=== PATIENT | female | born 1940 | race Caucasian/White ===

== ENCOUNTER 2016-10-06 09:54 | Observation (INO) | payer MEDICARE, OTHER ==
[~2016-10-06] VITALS: Ht 152.4 cm; Wt 54.9 kg
[2016-10-06] VITALS (7 sets, daily range): BP systolic 92–207; BP diastolic 55–85
[~2016-10-06 09:54] MED LIST: ASCO-277 PO; ASCO2000; ASPI-84 PO; ATEN-156 PO; CALC1TAB97 PO; CETI10TA17 PO; CHOL500044 PO; CINN500C7 PO; CINNAMON; CYCL10TA9 PO; DCS100C; DICL150D5 TP; DULO60CA6 PO; ESTR0.5T3 VG; ESTR42.52 VG; EVENING PRIMROSE; FEXO-142 PO; GARL10002 PO; GARL400T13; GARLIC 1000 MG PO; IBP800T; LOSA1TAB3; LOSA1TAB69 PO; LOSA25TA5 PO; MMT17NA NSEACH; MULT-608 PO; NFAMINITAB PO; OMEG-109 PO; OMEG1CAP58 PO; OMEP20CA6 PO; OMNARIS NASAL; OXYC1TAB17 PO; PANT20TA2 PO; PANT40TA3 PO; PIOG1TAB PO; ROPI0.5T2 PO; ROPI1TAB2 PO; SIMV10TA3; SIMV20TA3 PO; SITA1TAB2 PO; SUCR1TAB23 PO; TERI202.4P SQ; TRAZ50TA67; TRM50T; TRZ100T PO
[2016-10-06 11:03] LABS: BASOPHILS % (AUTO) 1 % (0-10); EOSINOPHILS # (AUTO) 0.1 10^3/uL (0.0-0.3); EOSINOPHILS % (AUTO) 2 % (0-10); LYMPHOCYTES # (AUTO) 1.8 X 10^3 (1.0-4.0); LYMPHOCYTES % (AUTO) 33 % (12-44); MEAN CORPUSCULAR HEMOGLOBIN 31 PG (25-34); MEAN CORPUSCULAR HGB CONC 32 G/DL (32-36); MEAN CORPUSCULAR VOLUME 98 FL (80-99); MEAN PLATELET VOLUME 9.5 FL (7.4-10.4); MONOCYTES # (AUTO) 0.3 X 10^3 (0.0-1.0); MONOCYTES % (AUTO) 6 % (0-12); NEUTROPHILS # (AUTO) 3.2 X 10^3 (1.8-7.8); NEUTROPHILS % (AUTO) 59 % (42-75); PLATELET COUNT 262 10^3/uL (130-400); RED BLOOD COUNT 3.81 10^6/uL (4.35-5.85); WHITE BLOOD COUNT 5.4 10^3/uL (4.3-11.0)
[2016-10-06] MEDS ORDERED: DICL100G31 TP (11:08)
[2016-10-06] MEDS ORDERED: SIMV20TA3 PO (11:08)
[2016-10-06] MEDS ORDERED: OXYC-465 PO (11:08)
[2016-10-06] MEDS ORDERED: TRAZ100T92 PO (11:08)
[2016-10-06] MEDS ORDERED: DULO60CA58 PO (11:08)
[2016-10-06] MEDS ORDERED: ROPI1TAB2 PO (11:08)
[2016-10-06 11:24] LABS: ALANINE AMINOTRANSFERASE 19 U/L (0-55); ALBUMIN 3.7 GM/DL (3.2-4.5); ANION GAP 8 MMOL/L (5-14); ASPARTATE AMINO TRANSFERASE 18 U/L (5-34); BILIRUBIN,TOTAL 0.5 MG/DL (0.1-1.0); BLOOD UREA NITROGEN 12 MG/DL (7-18); BUN/CREATININE RATIO 18; CALCIUM 9.2 MG/DL (8.5-10.1); CARBON DIOXIDE 26 MMOL/L (21-32); CHLORIDE 107 MMOL/L (98-107); CREATININE SERUM 0.65 MG/DL (0.60-1.30); GFR ESTIMATED > 60; GLUCOSE 104 MG/DL (70-105); POTASSIUM 3.1 MMOL/L (3.6-5.0); SODIUM 141 MMOL/L (135-145); TOTAL PROTEIN 6.4 GM/DL (6.4-8.2)
[2016-10-06 11:44] LABS: THYROID STIMULATING HORMONE 1.31 UIU/ML (0.35-4.94)
[2016-10-06 13:10] LABS: BILIRUBIN,URINE NEGATIVE (NEGATIVE); KETONES,URINE 1+ (NEGATIVE); LEUKOCYTE ESTERASE ,URINE 1+ (NEGATIVE); NITRITE,URINE NEGATIVE (NEGATIVE); PH,URINE 7 (5-9); PROTEIN,URINE NEGATIVE (NEGATIVE); UROBILINOGEN,URINE NORMAL (NORMAL)
[2016-10-06 13:18] LABS: SQUAMOUS EPITHELIAL CELL,UR 0-2 /HPF; WBC,URINE 0-2 /HPF
--- NOTE | 2016-10-06 13:41 | Diagnostic Imaging Report ---
PROCEDURE: CT head without contrast. TECHNIQUE: Multiple contiguous axial images were obtained through the brain without the use of intravenous contrast. INDICATION: Confusion. FINDINGS: There is no intracranial hemorrhage, edema or mass effect. The brain parenchyma demonstrates periventricular and deep white matter hypodensities compatible with chronic microvascular ischemic changes. No hydrocephalus. No extra-axial fluid collection is seen. The calvarium, the paranasal sinuses and orbits appear grossly unremarkable. IMPRESSION: No acute process. Dictated by: Dictated on workstation # [id number]
--- NOTE | 2016-10-06 15:32 | Diagnostic Imaging Report ---
PROCEDURE: MR imaging of the brain without contrast. TECHNIQUE: Multiplanar, multisequence MR imaging of the brain was performed without contrast. INDICATION: Memory impairment and confusion. FINDINGS: There is no diffusion restriction to suggest an acute infarct or other diffusion abnormality. There is periventricular and deep white matter T2 hyperintense signal seen. This is in a pattern suggestive of chronic progressive ischemic changes. There is slight prominence of the CSF spaces, expected at the patient's age with no significant the ventricular dilatation or hydrocephalus. The central vascular flow-voids appear grossly unremarkable. The internal auditory canals and inner ear structures appear unremarkable. The pituitary gland is not enlarged. No hypothalamic or pineal region mass. IMPRESSION: White matter findings are suggestive of chronic microvascular ischemic changes. No acute infarct. Dictated by: Dictated on workstation # [id number]
[2016-10-06] MEDS ORDERED: KCL 20 MEQ TAB (K-DUR) PO NR (16:15)
[2016-10-06] MEDS ORDERED: cloNIDine 0.1 MG (CATAPRES) TAB PO NR ×2 (16:15→18:15)
[2016-10-06] MEDS ORDERED: ALPRAZolam 0.25 MG (XANAX) TAB PO NR (18:15)
[2016-10-06] MEDS ORDERED: amLODIPine 5 MG (NORVASC) TAB PO NR (18:15)
--- NOTE | 2016-10-06 18:19 | History & Physicial ---
History of Present Illness History of Present Illness Reason for visit/HPI PT IS A 75 Y/O FEMALE WHO PRESENTED TO THE OFFICE TODAY FOR A MEDICARE PHYSICAL WHEN SHE WAS NOTICED TO HAVE SOME HESITANCY IN HER SPEECH. SHE NOTICED THAT SHE HAD QUITE A HEADACHE THIS MORNING AND ADMITTED THAT SHE DROVE HERSELF TO THE OFFICE. SHE REPORTED THAT SHE WAS HAVING HEADACHES OFF AND ON FOR A FEW DAYS. Date of Admission Oct 06, 2016 at 10:21 Date Seen by Provider: Oct 06, 2016 Time Seen by Provider: 10:10 Attending Physician Tracy Nuñez MD Admitting Physician Tracy Nuñez MD Consult Allergies and Home Medications Allergies Coded Allergies: Iodinated Casein (Unverified Allergy, Mild, 06/12/09) Home Medications Aspirin 81 Mg Tablet.dr, 81 MG PO HS, (Reported) Cholecalciferol (Vitamin D3) 5,000 Unit Tablet, 5,000 UNIT PO DAILY, (Reported) Diclofenac Sodium 100 Gm Gel..gram., 1 APPLIC TP QID PRN for PAIN, (Reported) Duloxetine HCl 60 Mg Capsule.dr, 60 MG PO DAILY, (Reported) Garlic 1,000 Mg Capsule, 1,000 MG PO BID, (Reported) Losartan/Hydrochlorothiazide 1 Each Tablet, 1 TAB PO DAILY, (Reported) Multivitamins 1 Tab Tablet, 1 TAB PO DAILY, (Reported) Oxycodone HCl/Acetaminophen 1 Each Tablet, 2 TAB PO TID PRN for PAIN-MODERATE, ( Reported) Pantoprazole Sodium 40 Mg Tablet.dr, 40 MG PO DAILY, (Reported) Ropinirole HCl 0.5 Mg Tablet, 0.5 MG PO HS, (Reported) TAKES IN ADDITION WITH ROPINIROLE 1MG @ BEDTIME Ropinirole HCl 1 Mg Tablet, 1 MG PO HS, (Reported) TAKES IN ADDITION WITH ROPINIROLE 0.5MG @ BEDTIME Simvastatin 20 Mg Tablet, 20 MG PO HS, (Reported) Sitagliptin Phos/Metformin HCl 1 Tab Tablet, 1 TAB PO BID, (Reported) Trazodone HCl 100 Mg Tablet, 100 MG PO HS, (Reported) Past Yjfohfe-Abnehi-Zbljmp Hx Patient Social History Marrital Status: Living Status: LIVES AT HOME WITH HER Employed/Student: retired Alcohol Use: Denies Use Recreational Drug Use: No Smoking Status: Former Smoker Type Used: Cigarettes 2nd Hand Smoke Exposure: No Physical Abuse Screen: No Sexual Abuse: No Recent Foreign Travel: No Contact w/other who traveled: No Recent Hopitalizations: Yes (SURGERIES, VAG X 3) Recent Infectious Disease Expo: No Immunizations Up To Date Tetanus Booster (TDap): More than 5yrs Date of Pneumonia Vaccine: Nov 21, 2015 Date of Influenza Vaccine: Jan 15, 2015 Seasonal Allergies Seasonal Allergies: No Surgeries HX Surgeries: Yes (left breast bx, cataracts, A&P repair, kyphoplasty) Respiratory Hx Respiratory Disorders: Yes (SLEEP APNEA wears cpap at night) Cardiovascular Hx Cardiovascular Disorders: Yes Cardiac Disorders: Hypertension Neurological Hx Neurological Disorders: No Reproductive System : No Hx Reproductive Disorders: No Sexually Transmitted Disease: No HIV/AIDS: No Female Reproductive Disorders: Denies Genitourinary Hx Genitourinary Disorders: No Gastrointestinal Hx Gastrointestinal Disorders: Yes (CHRONIC CONSTIPATION) Musculoskeletal Hx Musculoskeletal Disorders: Yes Musculoskeletal Disorders: Arthritis, Chronic Back Pain Endocrine Hx Endocrine Disorders: Yes Endocrine Disorders: Diabetes, Non-Insulin dep HEENT HX ENT Disorders: No Loss of Vision: Denies Hearing Impairment: Denies Cancer Hx Cancer: No Psychosocial Hx Psychiatric Problems: Yes Blood Transfusions Hx Blood Disorders: No Reviewed Nursing Assessment Reviewed/Agree w Nursing PMH: Yes Family Medical History Significant Family History: Hypertension Family Hx: Patient reports no known family medical history. Constitutional: No chills, No fever, malaise, weakness EENTM: No hoarseness, No mouth pain, No throat pain Respiratory: No cough, No dyspnea on exertion, No short of breath Cardiovascular: No chest pain, No palpitations Gastrointestinal: No abdominal pain, No constipation, No diarrhea, No nausea, No vomiting Genitourinary: no symptoms reported : No Musculoskeletal: muscle weakness Skin: no symptoms reported Psychiatric/Neurological: Weakness, Other (CONFUSION, SLOW SPEECH) All Other Systems Reviewed Negative Unless Noted: Yes Physical Exam Vital Signs Vital Sign - Last 12Hours 10/06/16 12:00 Temp 98.6 Pulse 56 Resp 20 B/P (MAP) 190/78 Pulse Ox 99 O2 Delivery Room Air Capillary Refill : General Appearance: No Apparent Distress, WD/WN HEENT: PERRL/EOMI, Pharynx Normal Neck: Full Range of Motion, Supple Respiratory: Chest Non Tender, Lungs Clear, Normal Breath Sounds, No Accessory Muscle Use Cardiovascular: Regular Rate, Rhythm, No Edema, No Gallop Gastrointestinal: Normal Bowel Sounds, No Organomegaly, Non Tender, Soft Rectal: Deferred Back: Other (KYPHOSIS) Neurologic/Psychiatric: Alert, Oriented x3, Other (SLOW SPEECH) Skin: Warm/Dry Lymphatic: No Adenopathy Assessment/Plan Assessment and Plan HYPERTENSION WEAKNESS SLOW SPEECH HYPERLIPIDEMIA DIABETES MELLITUS HYPERTENSION - UNCONTROLLED - CHECK BLOOD PRESSURE. RESTARTED LOSARTAN. - BLOOD PRESSURE SPIKES LATE IN THE DAY - CLONIDINE ORDERED FOR PRN USE. WEAKNESS AND SLOW SPEECH - RECOMMENDED PT TO HAVE CT SCAN AT HOSPITAL, CHECK LABS - CT SCAN NEGATIVE. HYPERLIPIDEMIA - CONTINUE HOME MEDICATIONS. HYPONATREMIA ON OFFICE LAB - THIS WAS NORMAL ON REPEAT EVAL AT THE HOSPITAL. DIABETES MELLITUS - HOLD HOME MEDICATIONS AT THIS TIME. Problems: Admission Diagnosis HYPERTENSION WEAKNESS SLOW SPEECH HYPERLIPIDEMIA DIABETES MELLITUS Clinical Quality Measures DVT/VTE Risk/Contraindication: Risk Factor Score Per Nursin RFS Level Per Nursing on Admit: 2=Moderate TRACY NUÑEZ MD Oct 06, 2016 18:19
[2016-10-06] MEDS ORDERED: DICLOFENAC 1% GEL 100 GM (VOLTAREN) TUBE TP PRN (18:30)
[2016-10-06] MEDS ORDERED: LOSARTAN 50 MG (COZAAR) TAB PO NR (18:30)
[2016-10-06] MEDS ORDERED: oxyCODONE/APAP 10/325MG (PERCOCET 10) TABLET PO PRN (18:30)
[2016-10-06] MEDS ORDERED: rOPINIRole 0.25 MG (REQUIP) TAB PO SCH (21:00)
[2016-10-06] MEDS ORDERED: SIMvastatin 20 MG (ZOCOR) TAB PO SCH (21:00)
[2016-10-06] MEDS ORDERED: rOPINIRole 1 MG (REQUIP) TABLET PO SCH ×2 (21:00)
[2016-10-06] MEDS ORDERED: traZODone 100 MG (DESYREL) TAB PO SCH (21:00)
[2016-10-06] MEDS ORDERED: ASPIRIN E.C. 81 MG (ECOTRIN) TAB PO SCH (21:00)
[2016-10-06] MEDS: cloNIDine 0.1 MG (CATAPRES) TAB PO SCH (22:54)
[2016-10-06] MEDS ORDERED: NS IV 500 ML 500 ML IV ONE (23:00)
[2016-10-06] MEDS ORDERED: NS (IVPB) 250 ML ONE (23:00)
[2016-10-07 00:52] VITALS: BP 102/53
[2016-10-07 04:10] VITALS: BP 149/69
[2016-10-07 06:03] LABS: MEAN PLATELET VOLUME 9.7 FL (7.4-10.4); RED BLOOD COUNT 3.87 10^6/uL (4.35-5.85); RED CELL DISTRIBUTION WIDTH 15.1 % (10.0-14.5); WHITE BLOOD COUNT 4.6 10^3/uL (4.3-11.0)
[2016-10-07 06:22] LABS: ALANINE AMINOTRANSFERASE 23 U/L (0-55); ALBUMIN 3.6 GM/DL (3.2-4.5); ANION GAP 9 MMOL/L (5-14); ASPARTATE AMINO TRANSFERASE 19 U/L (5-34); BILIRUBIN,TOTAL 0.3 MG/DL (0.1-1.0); BLOOD UREA NITROGEN 10 MG/DL (7-18); BUN/CREATININE RATIO 16; CARBON DIOXIDE 24 MMOL/L (21-32); CHLORIDE 111 MMOL/L (98-107); CREATININE SERUM 0.62 MG/DL (0.60-1.30); GFR ESTIMATED > 60; GLUCOSE 102 MG/DL (70-105); POTASSIUM 3.6 MMOL/L (3.6-5.0); SODIUM 144 MMOL/L (135-145); TOTAL PROTEIN 6.1 GM/DL (6.4-8.2)
[2016-10-07] MEDS ORDERED: PANTOPRAZOLE 40 MG (PROTONIX) TAB PO SCH (07:00)
[2016-10-07 08:00] VITALS: BP 104/55
[2016-10-07 08:24] VITALS: BP 164/55
[2016-10-07] MEDS ORDERED: LOSARTAN 50 MG (COZAAR) TAB PO SCH (09:00)
[2016-10-07] MEDS ORDERED: VITAMIN D3 5,000 UNITS (CHOLECALCIFEROL ) CAPSULE PO SCH (09:00)
[2016-10-07] MEDS ORDERED: DULoxetine 30 MG (CYMBALTA) CAP PO SCH (09:00)
[2016-10-07] MEDS: cloNIDine 0.1 MG (CATAPRES) TAB PO SCH (09:10)
[2016-10-07] MEDS ORDERED: CLON0.1T PO (09:38)
--- NOTE | 2016-10-07 09:39 | Discharge Inst-Complex ---
PDI Med Rec & Follow Up Appt. New Medications: Clonidine HCl (Clonidine HCl) 0.1 Mg Tablet 0.1 MG PO BID PRN for BLOOD PRESSURE for 30 Days, #60 TAB 1 Refill if systolic blood pressure is > or =to 180 take med, repeat BP @noc if above 180 take 0.1clonidine Continued Medications: Aspirin (Rena) 81 Mg Tablet.dr 81 MG PO HS Cholecalciferol (Vitamin D3) (Vitamin D3) 5,000 Unit Tablet 5000 UNIT PO DAILY, TAB Diclofenac Sodium (Diclofenac Sodium) 100 Gm Gel..gram. 1 APPLIC TP QID PRN for PAIN Duloxetine HCl (Duloxetine HCl) 60 Mg Capsule.dr 60 MG PO DAILY Garlic (Garlic) 1,000 Mg Capsule 1000 MG PO BID, CAP Losartan/Hydrochlorothiazide (Losartan-Hctz 50-12.5 mg Tab) 1 Each Tablet 1 TAB PO DAILY, TAB Multivitamins (Multiple Vitamin) 1 Tab Tablet 1 TAB PO DAILY Oxycodone HCl/Acetaminophen (Oxycodone-Acetaminophen 10-325) 1 Each Tablet 2 TAB PO TID PRN for PAIN-MODERATE Pantoprazole Sodium (Pantoprazole Sodium) 40 Mg Tablet.dr 40 MG PO DAILY, TAB Ropinirole HCl (Ropinirole HCl) 0.5 Mg Tablet 0.5 MG PO HS, TAB TAKES IN ADDITION WITH ROPINIROLE 1MG @ BEDTIME Ropinirole HCl (Ropinirole HCl) 1 Mg Tablet 1 MG PO HS TAKES IN ADDITION WITH ROPINIROLE 0.5MG @ BEDTIME Simvastatin (Simvastatin) 20 Mg Tablet 20 MG PO HS Sitagliptin Phos/Metformin HCl (Janumet 50-500 mg Tablet) 1 Tab Tablet 1 TAB PO BID, TAB Trazodone HCl (Trazodone HCl) 100 Mg Tablet 100 MG PO HS Prescription: Transmitted to Pharmacy Activity, Diet and PDI Resume Normal Activity: Yes Driving Instructions: No Driving for 1 Week TRACY GIBBONS MD Oct 07, 2016 09:39
[2016-10-07 10:10] VITALS: BP 104/55
== END 2016-10-07 09:38 | disposition home or self-care (01) ==
LOC: 4TH 10:21 → UNDOADMOB 10:21 → 4TH 10:31 → ENPENDDIS 10-07 09:45 → UNDODISOB 10-07 10:10
PROVIDERS: ADMIT Family Medicine; ATTEND Family Medicine
DX: I16.0 Hypertensive urgency (principal); E78.5 Hyperlipidemia, unspecified; E87.1 Hypo-osmolality and hyponatremia; R41.0 Disorientation, unspecified; R47.9 Unspecified speech disturbances; Z79.82 Long term (current) use of aspirin; Z79.899 Other long term (current) drug therapy; Z87.891 Personal history of nicotine dependence
CPT/HCPCS: 36415; 70450; 70551; 80053; 81000; 84443; 85025; 85027; 99211; G0378

== ENCOUNTER → 2017-04-22 | Outpatient (CLI) | payer MEDICARE, OTHER ==
[~2017-04-22] MED LIST changes: +CLON0.1T PO; +DICL100G31 TP; +DULO60CA58 PO; +LOSA1TAB20 PO; -LOSA1TAB69 PO; +OXYC-465 PO; +TRAZ100T92 PO
--- NOTE | 2017-04-22 11:19 | Diagnostic Imaging Report ---
INDICATION: Fall with back pain. Time of exam: 10:20 AM Comparison is made with prior thoracic spine radiographs from 11/14/2014. Curvature and alignment appear stable. Kyphoplasty changes at T9 and T12 are again noted. There is a small amount of cement within the T10 vertebral body as well. No further loss of vertebral body stature is identified. No new compression fractures identified. Paraspinous line is intact. Generalized thoracic spondylosis with variable disc space narrowing and marginal spurring is seen. IMPRESSION: Stable thoracic spine radiographs when compared with exam from 11/14/2014. No acute features detected. Dictated by: Dictated on workstation # [id number]
--- NOTE | 2017-04-22 11:51 | Diagnostic Imaging Report ---
INDICATION: Fall with neck pain. TIME OF EXAM: 10:18 AM FINDINGS: Curvature and alignment of the cervical spine are normal. There is multilevel facet arthropathy. The prevertebral tissues are normal. No fractures are seen. The odontoid appears intact. IMPRESSION: Cervical spondylosis. No acute bony abnormality is detected. Dictated by: Dictated on workstation # [id number]
--- NOTE | 2017-04-22 12:26 | Diagnostic Imaging Report ---
INDICATION: Fall with increasing right shoulder pain. TIME OF EXAM: 10:14 a.m. FINDINGS: Three views of the right shoulder were obtained. Glenohumeral and acromioclavicular alignment is normal. Acromiohumeral space is normal. No fracture or dislocation is seen. IMPRESSION: No acute bony abnormality is detected. Dictated by: Dictated on workstation # [id number]
== END ==
LOC: RAD 09:42
PROVIDERS: ATTEND Family Medicine
DX: M47.812 Spondylosis without myelopathy or radiculopathy, cervical region (principal); M25.511 Pain in right shoulder; W19.XXXA Unspecified fall, initial encounter; Z98.890 Other specified postprocedural states
CPT/HCPCS: 72040; 72072; 73030

== ENCOUNTER → 2017-12-09 | Outpatient (CLI) | payer MEDICARE, OTHER ==
[~2017-12-09] MED LIST changes: +TRAZ-190 PO; -TRAZ100T92 PO
--- NOTE | 2017-12-09 15:21 | Diagnostic Imaging Report ---
CLINICAL INDICATION: Patient with coronary artery disease. COMPARISON: None. EXAMINATION: Real-time carotid Doppler duplex imaging is performed bilaterally. Peak systolic velocity, ICA/CCA peak systolic ratio, spectral analysis, and vascular morphology are studied. FINDINGS: ARTERY VELOCITY Right Left CCA 0.75 m/s 0.87 m/s ICA 0.96 m/s 0.88 m/s ECA 0.89 m/s 0.82 m/s ICA/CCA 1.3 1.0 VERT.ART Antegrade Antegrade There is minimal atherosclerotic disease involving the right cervical ICA bulb. IMPRESSION: There is no grayscale or Doppler evidence of significant vascular stenosis. Dictated by: Dictated on workstation # [id number]
== END ==
LOC: RAD 13:57
PROVIDERS: ATTEND Nurse Practitioner Family
DX: I25.10 Atherosclerotic heart disease of native coronary artery without angina pectoris (principal); H54.7 Unspecified visual loss; E78.5 Hyperlipidemia, unspecified
CPT/HCPCS: 93880

== ENCOUNTER → 2018-06-25 | Outpatient (CLI) | payer MEDICARE, OTHER ==
[2018-06-25 08:23] LABS: BILIRUBIN,URINE NEGATIVE (NEGATIVE); CLARITY,URINE VERY CLOUDY; COLOR,URINE YELLOW; GLUCOSE, URINE (UA) NEGATIVE (NEGATIVE); KETONES,URINE 1+ (NEGATIVE); LEUKOCYTE ESTERASE ,URINE 2+ (NEGATIVE); NITRITE,URINE NEGATIVE (NEGATIVE); PH,URINE 6 (5-9); PROTEIN,URINE 2+ (NEGATIVE); UROBILINOGEN,URINE NORMAL (NORMAL)
[2018-06-25 08:37] LABS: BACTERIA,URINE NEGATIVE /HPF
[2018-06-25 08:38] LABS: AMORPHOUS SEDIMENT,UR LARGE AMOR URATES /LPF; SQUAMOUS EPITHELIAL CELL,UR RARE /HPF
--- NOTE | 2018-06-28 00:22 | Physician Query-Final Dx ---
ELIAZAR SMITH 06/28/18 0022: Clinic Account Progress/Dx Physician Query: Please give diagnosis Date of Service Jun 25, 2018 at 08:11 TRACY GIBBONS MD 07/05/18 1957: Clinic Account Progress/Dx DIAGNOSIS: Diagnosis DYSURIA ELIAZAR SMITH Jun 28, 2018 00:22 TRACY GIBBONS MD Jul 05, 2018 19:57
== END ==
LOC: CATH 08:11
PROVIDERS: ATTEND Family Medicine
DX: R30.0 Dysuria (principal)
CPT/HCPCS: 81000